=== PATIENT | male | born 1960 | race African-American/Black ===

== ENCOUNTER 2025-03-01 21:31 | Emergency (ER) | payer MEDICARE, OTHER ==
[~2025-03-01] VITALS: Ht 175.3 cm; Wt 80.5 kg
[2025-03-01 21:37] VITALS: BP 151/96; PULSE 77; RESP 18; TEMP 97.6; O2SAT 95
[2025-03-01] MEDS ORDERED: IBUP-1456 PO (21:43)
--- NOTE | 2025-03-01 21:44 | ED.PDOC ---
HPI Comments 64-year-old male presents to the ED chief complaint laceration to top of head. Patient states earlier prior to arrival picked his head up quick and hit the top of it on a kitchen cabinet causing a laceration to top of the scalp. Patient states pain is 3/10 on pain scale pressure type pain. REPORTED TETANUS UP-TO-DATE. Denies LOC, headache neck pain, or history of being on long-term treatment with blood thinners. Chief Complaint: Head Injury Time Seen by MD: 21:34 Reviewed Notes: Nurses Notes, Medications, Allergies Home Meds Active Scripts Ibuprofen (Ibuprofen) 800 Mg Tab, 800 MG PO Q8HP PRN for 10 Days, #30 TAB Prov:ANNABELLE MOSS DARWIN 03/01/25 Information Source: Patient Complexity: Simple Laceration Length (cm): 2 Skin Type: Linear Tendon Injury: 0% Tender: None Discharge: None Past Medical History PAST MEDICAL HISTORY: Denies Surgical History: Denies all surgeries Family History Family History: Reviewed,noncontributory to illness Social History Smoker: Non-Smoker Alcohol: Denies ETOH Use Drugs: Denies Drug Use All Other Systems: Reviewed and Negative (see hpi) Physical Exam General Appearance: No Apparent Distress, Normal HEENT: Pharynx Normal Neck: Full Range of Motion, Non-Tender Respiratory: Lungs Clear, No Respiratory Distress, Normal Breath Sounds Cardiovascular: No Murmur, Normal Peripheral Pulses, Regular Rate/Rhythm Breast Exam: Deferred Gastrointestinal: Non Tender, Soft Genitalia: Deferred Pelvic: Deferred Rectal: Deferred Extremities: Normal capillary refill, Normal range of motion Musculoskeletal : Apperance: Normal Neurologic: Alert, No Motor Deficits, Normal Affect, Normal Mood, No Sensory Deficits Cerebellar Function: Normal Reflexes: NOT DONE Skin: Dry, Lacerations (2 cm full-thickness laceration to top of scalp bleeding controlled no obvious foreign body), Normal Color, Warm Lymphatic: No Adenopathy Was a procedure done? Was a procedure done?: Yes Sedation Sedation?: No Informed consent obtained: Yes Laceration Repair : Location TOP OF SCALP Length 2 CM Anesthetic: Nothing Laceration Repair Prep: Saline, by Irrigation Laceration Repair Wound Comple: epidermis/dermis repair Laceration Repair: Marco (THREE), Nothing Informed consent obtained: Yes Risks, benefits, and alternati: Yes Notes PATIENT TOLERATED WELL MINIMAL BLOOD LOSS Differential diagnosis Generic Laceration: Hematoma, Retained Foriegn Body, Laceration, Avulsion X-Ray, Labs, Meds, VS Vital Signs Date Time Temp Pulse Resp B/P (MAP) Pulse Ox O2 Delivery O2 Flow Rate FiO2 03/01/25 21:37 97.6 77 18 151/96 95 97.6 X-Ray, Labs, Meds, VS Comment See procedure note. Ibuprofen script to patient's pharmacy on five for pain advised take medication as prescribed side effects discussed. Advised staple removal in 7-10 days post staple care provided patient indicates understanding agrees with discharge plan of care advised on ER return precautions Time of 1ST Reevaluation: 21:35 Reevaluation 1ST: Unchanged Time of 2ND Reevaluation: 21:41 Reevaluation 2ND: Improved Patient Education/Counseling: Diagnosis, Treatment, Need For Follow Up Family Education/Counseling: Need For Follow Up Departure 1 Departure Time of Disposition: 21:41 Impression: Primary Impression: Laceration of scalp Qualified Codes: S01.01XA - Laceration without foreign body of scalp, initial encounter Disposition: HOME / SELF CARE / HOMELESS Condition: Stable e-Prescriptions Ibuprofen (Ibuprofen) 800 Mg Tab 800 MG PO Q8HP PRN for 10 Days, #30 TAB Prov: ANNABELLE MOSS 03/01/25 Discharged With: Self Critical Care Note Critical Care Time?: No Stability Stability form required: ANNABELLE Manuel Mar 01, 2025 21:43
== END 2025-03-01 21:58 | disposition home or self-care (01) ==
LOC: ER 21:31
DX: S01.01XA Laceration without foreign body of scalp, initial encounter (principal); W22.03XA Walked into furniture, initial encounter; Y93.89 Activity, other specified; Y92.000 Kitchen of unspecified non-institutional (private) residence as the place of occurrence of the external cause; Y99.8 Other external cause status
CPT/HCPCS: 12001